=== PATIENT | female | born 1990 | race Caucasian/White ===

== ENCOUNTER 2016-09-03 17:06 | Emergency (ER) | payer SELFPAY ==
[~2016-09-03] VITALS: Ht 160 cm; Wt 93.0 kg
[2016-09-03 17:20] VITALS: BP 141/85
[2016-09-03] MEDS ORDERED: PRED20TA PO (17:59)
--- NOTE | 2016-09-03 18:00 | PHYS DOC ---
Past Medical History Past Medical History: No Pertinent History Additional Past Medical Histor: herpes Past Surgical History: Alcohol Use: Occasionally Drug Use: None Adult General Chief Complaint Chief Complaint: ITCHING HPI HPI Patient is a 26 year old female presents emergency department stating that she was exposed to poison jemima last . She states that she has poison jemima on her right ear chest abdomen perineal area shoulders. She's been using Benadryl and calamine lotion with minimal relief. Patient denies any shortness of air difficulty breathing. 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 She is afraid that this is probably what is caused her to have the areas spread so badly. Review of Systems Review of Systems Constitutional: Denies fever or chills [] Eyes: Denies change in visual acuity, redness, or eye pain [] HENT: Denies nasal congestion or sore throat [] Respiratory: Denies cough or shortness of breath [] Cardiovascular: No additional information not addressed in HPI [] GI: Denies abdominal pain, nausea, vomiting, bloody stools or diarrhea [] : Denies dysuria or hematuria [] Musculoskeletal: Denies back pain or joint pain [] Integument: rash denies skin lesions [] Neurologic: Denies headache, focal weakness or sensory changes [] Endocrine: Denies polyuria or polydipsia [] Allergies Allergies Allergies Coded Allergies Type Severity Reaction Last Updated Verified No Known Drug Allergies 05/30/14 No Physical Exam Physical Exam Constitutional: Well developed, well nourished, no acute distress, non-toxic appearance. [] HENT: Normocephalic, atraumatic, bilateral external ears normal, oropharynx moist, no oral exudates, nose normal. [] Eyes: PERRLA, EOMI, conjunctiva normal, no discharge. [] Neck: Normal range of motion, no tenderness, supple, no stridor. [] Cardiovascular:Heart rate regular rhythm, no murmur [] Lungs & Thorax: Bilateral breath sounds clear to auscultation [] Skin: Warm, dry, no erythema, patient with a rash noted on the right ear lobe and cartilage of the ear. Patient was also noted to have a rash that appears to be fine red raised areas with slight percussion was noted in between bilateral breast area abdomen and perineal area. She is also noted to have the areas on her shoulders. No drainage or discharge noted from the sites this time. Back: No tenderness Extremities: No tenderness, no cyanosis, no clubbing, ROM intact, no edema. [] Neurologic: Alert and oriented X 3, normal motor function, normal sensory function, no focal deficits noted. [] Psychologic: Affect normal, judgement normal, mood normal. [] Current Patient Data Vital Signs Vital Signs Date Time Temp Pulse Resp B/P (MAP) Pulse Ox O2 Delivery O2 Flow Rate FiO2 09/03/16 17:20 98.1 85 18 97 Room Air 98.1 EKG EKG [] Radiology/Procedures Radiology/Procedures [] Course & Med Decision Making Course & Med Decision Making Pertinent Labs and Imaging studies reviewed. (See chart for details) Patient will be provided with a slight Medrol injection here in the emergency department. She was recommended to continue use the Benadryl 25 mg every 6 hours. She was instructed this medication will cause drowsiness do not take any be alert and oriented. Also recommended continue with calamine lotion. She'll be provided with a prescription for prednisone. Recommended keeping the areas clean dry and cool. Patient agrees with discharge instructions, treatment regimens and follow-up recommendations. Signs symptoms to return back to emergency department as been provided. [] Dragon Disclaimer Dragon Disclaimer This electronic medical record was generated, in whole or in part, using a voice recognition dictation system. Departure Departure Impression: Primary Impression: Contact dermatitis Disposition: 01 HOME, SELF-CARE Condition: STABLE Referrals: NO PCP (PCP) Patient Instructions: Contact Dermatitis, [id number] Additional Instructions: Keep the areas clean dry and cool. Benadryl 25 mg every 6 hours as needed for itching and irritation. This medication will cause drowsiness do not take any be alert and oriented. Calamine lotion to the areas 2-3 times a day this will help with the rash. Prednisone as prescribed. Keep the areas as cool as possible. Follow-up with her primary care physician as needed in the next week. Return back to emergency department for signs and symptoms that become worse. Scripts Prednisone (PREDNISONE) 20 Mg Tablet 40 MG PO DAILY for 7 Days, #14 TAB Prov: SALVADOR JUARES APRN 09/03/16 SALVADOR JUARES APRN Sep 03, 2016 17:59
[2016-09-03] MEDS ORDERED: methylPREDNISolone SOD SUCC PF 125 MG/2 ML VIAL. IM ONE (18:15)
== END 2016-09-03 18:35 | disposition home or self-care (01) ==
LOC: ER 17:06
DX: L25.9 Unspecified contact dermatitis, unspecified cause (principal)
CPT/HCPCS: 96372; 99283; J2930

== ENCOUNTER 2017-06-04 09:21 | Emergency (ER) | payer SELFPAY ==
[2017-06-04] MEDS: LIDO:MAALOX 1:1 20 ML SINGLE DOSE. PO (10:01)
[2017-06-04] MEDS: ONDANSETRON ODT 4 MG TAB.RAPDIS. PO (10:01)
[2017-06-04 10:11] LABS: AGAP ISTAT 16 mmol/L (6-14); BUN ISTAT 15 mg/dL (8-26); CHLORIDE ISTAT 104 mmol/L (98-110); CREATININE ISTAT 0.7 mg/dL (0.5-1.4); GLUCOSE ISTAT 101 mg/dL (70-99); HEMATOCRIT ISTAT 41 % (36-40); HEMOGLOBIN ISTAT 13.9 g/dL (12-15); ION CA ISTAT 1.16 mmol/L (1.13-1.32); POTASSIUM ISTAT 3.9 mmol/L (3.5-5.0); SODIUM ISTAT 139 mmol/L (135-145); TOT CO2 ISTAT 24 mmol/L (23-32)
[2017-06-04] MEDS: KETOROLAC 30 MG/ML INJ. IV (10:50)
[2017-06-04 11:04] LABS: D-DIMER 0.27 ug/mlFEU (0.00-0.50)
[2017-06-04] MEDS: FAMOTIDINE 20 MG TABLET. PO (11:29)
== END 2017-06-04 12:17 | disposition home or self-care (01) ==
LOC: ER 09:21
DX: R07.89 Other chest pain (principal)
CPT/HCPCS: 36415; 71046; 80047; 84484; 85379; 93005; 96374; 96375; 99285-25; J1885; J2060; Q0162

== ENCOUNTER 2017-08-18 09:45 | Emergency (ER) | payer SELFPAY ==
[2017-08-18 10:46] LABS: ADD MAN DIFF? NO
[2017-08-18 10:51] LABS: URINE HCG POC HCG NEGATIVE (Negative)
[2017-08-18] MEDS: IV NORMAL SALINE 1000ML BAG 1,000 ML IV (11:00)
[2017-08-18 11:02] LABS: BILIRUBIN,URINE NEGATIVE (NEG); CLARITY,URINE CLEAR; COLOR,URINE YELLOW; GLUCOSE,URINE NEGATIVE (NEG); NITRITE,URINE NEGATIVE (NEG); PH,URINE 5.5; PROTEIN,URINE NEGATIVE (NEG-TRACE); UROBILINOGEN,URINE 0.2 mg/dL (0.2 mg/dL)
[2017-08-18 11:04] LABS: ANION GAP 9 (6-14); BASO # 0.1 x10^3/uL (0.0-0.2); BASO % 1 % (0-3); BLOOD UREA NITROGEN 13 mg/dL (7-20); BUN/CREATININE RATIO 22 (6-20); CALCIUM 8.9 mg/dL (8.5-10.1); CARBON DIOXIDE 25 mmol/L (21-32); CHLORIDE 103 mmol/L (98-107); CREATININE 0.6 mg/dL (0.6-1.0); EOS # 0.1 x10^3/uL (0.0-0.7); EOS % 2 % (0-3); GFR 119.9; GLUCOSE 96 mg/dL (70-99); HEMATOCRIT 41.1 % (36.0-47.0); HEMOGLOBIN 14.2 g/dL (12.0-15.5); LYMPH # 2.5 x10^3/uL (1.0-4.8); LYMPH % 34 % (24-48); MEAN CORPUSCULAR HEMOGLOBIN 30 pg (25-35); MEAN CORPUSCULAR HGB CONC 34 g/dL (31-37); MEAN CORPUSCULAR VOLUME 87 fL (79-100); MONO # 0.5 x10^3/uL (0.0-1.1); MONO % 6 % (0-9); NEUT # 4.3 x10^3uL (1.8-7.7); NEUT % 57 % (31-73); PLATELET COUNT 319 x10^3/uL (140-400); POTASSIUM 4.2 mmol/L (3.5-5.1); RED BLOOD COUNT 4.72 x10^6/uL (3.50-5.40); RED CELL DISTRIBUTION WIDTH 12.2 % (11.5-14.5); SODIUM 137 mmol/L (136-145); WHITE BLOOD COUNT 7.5 x10^3/uL (4.0-11.0)
[2017-08-18 11:09] LABS: ALBUMIN 3.9 g/dL (3.4-5.0); ALBUMIN/GLOBULIN RATIO 1.1 (1.0-1.7); ALK PHOS 82 U/L (46-116); ALT (SGPT) 24 U/L (14-59); AMYLASE 42 U/L (25-115); AST (SGOT) 13 U/L (15-37); LIPASE 103 U/L (73-393); TOTAL BILIRUBIN 0.7 mg/dL (0.2-1.0); TOTAL PROTEIN 7.4 g/dL (6.4-8.2)
[2017-08-18 11:18] LABS: BACTERIA,URINE 0 /HPF (0-FEW); RBC,URINE 0 /HPF (0-2); SQUAMOUS EPITHELIAL CELL,UR MOD /LPF; WBC,URINE 0 /HPF (0-4)
== END 2017-08-18 13:25 | disposition home or self-care (01) ==
LOC: ER 13:25
DX: R10.11 Right upper quadrant pain (principal); R11.0 Nausea; R53.1 Weakness
CPT/HCPCS: 36415; 76705; 80053; 81001; 81025; 82150; 83690; 85025; 99285-25; J7030

== ENCOUNTER 2018-12-02 11:34 | Emergency (ER) | payer SELFPAY ==
[~2018-12-02] VITALS: Ht 160 cm; Wt 89.4 kg
[~2018-12-02 11:34] MED LIST: NITR100C62 PO; PRED20TA PO
[2018-12-02] MEDS ORDERED: KETOROLAC 15 MG/ML VIAL. IV STA (11:51)
[2018-12-02] MEDS ORDERED: IV NORMAL SALINE 1000ML BAG 1,000 ML IV ONE (12:00)
[2018-12-02] MEDS ORDERED: LIDOCAINE 2% 20 ML VIAL. IJ ONE (12:15)
[2018-12-02] MEDS ORDERED: PROCHLORPERAZINE 10 MG/2 ML VIAL. IV ONE (12:15)
[2018-12-02] MEDS ORDERED: diphenhydrAMINE 50 MG/ML VIAL IVP ONE (12:15)
--- NOTE | 2018-12-02 12:33 | PHYS DOC ---
Past Medical History Past Medical History: Kidney Stone Additional Past Medical Histor: herpes Past Surgical History: Alcohol Use: None Drug Use: None Adult General Chief Complaint Chief Complaint: HEADACHE HPI HPI Patient is a 28 year old female presents to the ER with a headache that started around 5:00 AM. The patient states she's been having bilateral eye pain/pressure, and light sensitivity, accompanied by nausea, and vomiting. The patient rates her pain as 8 out of 10 in severity. The patient has not taking medicine home she cannot keep it down. The patient states she does have a history of migraines. Review of Systems Review of Systems Constitutional: Denies fever or chills [] Eyes: Reports eye pressure. Denies change in visual acuity, redness HENT: Denies nasal congestion or sore throat [] Respiratory: Denies cough or shortness of breath [] Cardiovascular: No additional information not addressed in HPI [] GI: Reports nausea and vomiting. Denies abdominal pain,bloody stools or diarrhea [] : Denies dysuria or hematuria [] Musculoskeletal: Denies back pain or joint pain [] Integument: Denies rash or skin lesions [] Neurologic: Reports headache Denies focal weakness or sensory changes [] Endocrine: Denies polyuria or polydipsia [] Complete systems were reviewed and found to be within normal limits, except as documented in this note. Current Medications Current Medications Current Medications Medications (Trade) Dose Ordered Sig/Khoa Start Time Stop Time Status Last Admin Dose Admin Diphenhydramine HCl (Benadryl) 25 mg 1X ONCE 12/02/18 12:15 12/02/18 12:16 DC 12/02/18 12:06 25 MG Ketorolac Tromethamine (Toradol 15mg Vial) 10 mg 1X STAT 12/02/18 11:51 12/02/18 11:59 DC 12/02/18 12:06 10 MG Lidocaine HCl 20 ml 1X ONCE 12/02/18 12:15 12/02/18 12:16 DC 12/02/18 12:07 20 ML Lorazepam (Ativan Inj) 0.5 mg 1X STAT 12/02/18 12:19 12/02/18 12:21 DC Prochlorperazine Edisylate (Compazine) 10 mg 1X ONCE 12/02/18 12:15 12/02/18 12:16 DC 12/02/18 12:05 10 MG Sodium Chloride 1,000 ml @ 1,000 mls/hr 1X ONCE 12/02/18 12:00 12/02/18 12:59 12/02/18 12:05 1,000 MLS/HR Allergies Allergies Allergies Coded Allergies Type Severity Reaction Last Updated Verified No Known Drug Allergies 05/30/14 No Physical Exam Physical Exam Constitutional: Well developed, well nourished, no acute distress, non-toxic appearance. [] HENT: Normocephalic, atraumatic, bilateral external ears normal, oropharynx moist, no oral exudates, nose normal. [] Eyes: PERRLA, EOMI, conjunctiva normal, no discharge. [] Neck: Normal range of motion, no tenderness, supple, no stridor. [] Cardiovascular:Heart rate regular rhythm, no murmur [] Lungs & Thorax: Bilateral breath sounds clear to auscultation [] Abdomen: Bowel sounds normal, soft, no tenderness, no masses, no pulsatile masses. [] Skin: Warm, dry, no erythema, no rash. [] Back: No tenderness, no CVA tenderness. [] Extremities: No tenderness, no cyanosis, no clubbing, ROM intact, no edema. [] Neurologic: Alert and oriented X 3, normal motor function, normal sensory function, no focal deficits noted. [] Psychologic: Affect normal, judgement normal, mood normal. [] Current Patient Data Vital Signs Vital Signs Date Time Temp Pulse Resp B/P (MAP) Pulse Ox O2 Delivery O2 Flow Rate FiO2 12/02/18 11:48 98.4 84 16 151/102 (118) 97 Room Air 98.4 Lab Values Laboratory Tests Test 12/02/18 12:28 POC Urine HCG, Qualitative Hcg negative (Negative) EKG EKG [] Radiology/Procedures Radiology/Procedures [] Course & Med Decision Making Course & Med Decision Making Pertinent Labs and Imaging studies reviewed. (See chart for details) NS Fluids, Compazine, Benadryl, and Toradol to help resolution of headache. Patient states at 12:58 her headache has resolved to a 0/10 and she is ready to go home. Will d/c home. Dragon Disclaimer Dragon Disclaimer This electronic medical record was generated, in whole or in part, using a voice recognition dictation system. Departure Departure Impression: Primary Impression: Migraine Disposition: 01 HOME, SELF-CARE Condition: STABLE Referrals: NO PCP (PCP) Patient Instructions: Migraine Headache Additional Instructions: Thank you for visiting [facility]. We appreciate you trusting us with your care. If any additional problems come up don't hesitate to return to visit us. Please follow up with your primary care provider so they can plan additional care if needed and know about the problem that you had. If symptoms worsen come back to the Emergency Department. Any concerning symptoms that start such as chest pain, shortness of air, weakness or numbness on one side of the body, running high fevers or any other concerning symptoms return to the ER. Problem Qualifiers Primary Impression: Migraine Migraine type: with aura Status migrainosus presence: without status migrainosus Intractability: not intractable Qualified Codes: G43.109 - Migraine with aura, not intractable, without status migrainosus JACINDA TY APRN Dec 02, 2018 12:33
[2018-12-02 12:40] VITALS: BP 126/73
== END 2018-12-02 12:58 | disposition home or self-care (01) ==
LOC: ER 11:34
DX: G43.109 Migraine with aura, not intractable, without status migrainosus (principal); R11.2 Nausea with vomiting, unspecified
CPT/HCPCS: 81025; 96361; 96372; 96374; 96375; 99285; J0780; J1200; J1885; J2001; J7030

== ENCOUNTER 2019-07-20 09:29 | Emergency (ER) | payer SELFPAY ==
[~2019-07-20] VITALS: Ht 160 cm; Wt 96.3 kg
[2019-07-20 09:51] VITALS: BP 145/94
[2019-07-20 10:16] LABS: BILIRUBIN,URINE NEGATIVE (NEG); CLARITY,URINE CLEAR; COLOR,URINE YELLOW; NITRITE,URINE NEGATIVE (NEG); PROTEIN,URINE NEGATIVE (NEG-TRACE)
[2019-07-20 10:31] LABS: BACTERIA,URINE 0 /HPF (0-FEW)
[2019-07-20 10:37] LABS: SQUAMOUS EPITHELIAL CELL,UR OCC /LPF
[2019-07-20] MEDS ORDERED: CIPR500T94 PO (11:55)
[2019-07-20] MEDS ORDERED: PHEN-318 PO (11:55)
--- NOTE | 2019-07-20 11:55 | PHYS DOC ---
Past Medical History Past Medical History: Kidney Stone Additional Past Medical Histor: herpes Past Surgical History: Smoking Status: Current Some Day Smoker Alcohol Use: Occasionally Drug Use: None General Adult EDM: Chief Complaint: URINARY FREQUENCY HPI: HPI: Patient is a 29 year old female who presented to the ER for evaluation of pain with urination and frequency for a few day, no abdominal pain, no nausea or vomiting, no fever. Review of Systems: Review of Systems: Constitutional: Denies fever or chills. [] Eyes: Denies change in visual acuity. [] HENT: Denies nasal congestion or sore throat. [] Respiratory: Denies cough or shortness of breath. [] Cardiovascular: Denies chest pain or edema. [] GI: Denies abdominal pain, nausea, vomiting, bloody stools or diarrhea. [] : Positive for dysuria. [] Musculoskeletal: Denies back pain or joint pain. [] Integument: Denies rash. [] Neurologic: Denies headache, focal weakness or sensory changes. [] Endocrine: Denies polyuria or polydipsia. [] Lymphatic: Denies swollen glands. [] Psychiatric: Denies depression or anxiety. [] Heart Score: Risk Factors: Risk Factors: DM, Current or recent (<one month) smoker, HTN, HLP, family history of CAD, obesity. Risk Scores: Score 0 - 3: 2.5% MACE over next 6 weeks - Discharge Home Score 4 - 6: 20.3% MACE over next 6 weeks - Admit for Clinical Observation Score 7 - 10: 72.7% MACE over next 6 weeks - Early Invasive Strategies Allergies: Allergies: Allergies Coded Allergies Type Severity Reaction Last Updated Verified Penicillins Allergy Mild 07/20/19 Yes Physical Exam: PE: Constitutional: Well developed, well nourished, no acute distress, non-toxic appearance. [] HENT: Normocephalic, atraumatic, bilateral external ears normal, oropharynx moist, nose normal. [] Eyes: PERRLA, EOMI, conjunctiva normal, no discharge. [] Neck: Normal range of motion, no tenderness, supple, no stridor. [] Cardiovascular:Heart rate regular rhythm, no murmur [] Lungs & Thorax: Bilateral breath sounds clear to auscultation [] Abdomen: Bowel sounds normal, soft, no tenderness Skin: Warm, dry, no erythema, no rash. [] Back: No tenderness, no CVA tenderness. [] Extremities: No tenderness, no cyanosis, no clubbing, ROM intact, no edema. [] Neurologic: Alert and oriented X 3, Psychologic: Affect normal, judgement normal, mood normal. [] Current Patient Data: Labs: Laboratory Tests Test 07/20/19 09:47 07/20/19 09:54 Urine Collection Type Unknown Urine Color Yellow Urine Clarity Clear Urine pH 8.0 (<5.0-8.0) Urine Specific [place] 1.015 (1.000-1.030) Urine Protein Negative mg/dL (NEG-TRACE) Urine Glucose (UA) Negative mg/dL (NEG) Urine Ketones (Stick) Negative mg/dL (NEG) Urine Blood Trace (NEG) Urine Nitrite Negative (NEG) Urine Bilirubin Negative (NEG) Urine Urobilinogen Dipstick 1.0 mg/dL (0.2 mg/dL) Urine Leukocyte Esterase Small (NEG) Urine RBC 11-20 /HPF (0-2) Urine WBC 5-10 /HPF (0-4) Urine Squamous Epithelial Cells Occ /LPF Urine Bacteria 0 /HPF (0-FEW) Urine Hyaline Casts /HPF Urine Mucus /LPF POC Urine HCG, Qualitative Hcg negative (Negative) Vital Signs: Vital Signs Date Time Temp Pulse Resp B/P (MAP) Pulse Ox O2 Delivery O2 Flow Rate FiO2 07/20/19 09:51 97.9 90 18 145/94 (111) 98 Room Air 97.9 EKG: EKG: [] Radiology/Procedures: Radiology/Procedures: [] Course & Med Decision Making: Course & Med Decision Making Pertinent Labs and Imaging studies reviewed. (See chart for details) [] Dragon Disclaimer: [employer] Disclaimer: This electronic medical record was generated, in whole or in part, using a voice recognition dictation system. Departure Departure Impression: Primary Impression: UTI (urinary tract infection) Disposition: 01 HOME, SELF-CARE Condition: STABLE Referrals: NO PCP (PCP) PLEASE FOLLOW UP WITH YOUR DOCTOR IN 2 DAYS Patient Instructions: Urinary Tract Infection Scripts Phenazopyridine Hcl (PYRIDIUM) 200 Mg Tablet 1 TAB PO TID for urinary discomfort for 3 Days, #9 TAB 0 Refills Prov: REEYS STEELE DO 07/20/19 Ciprofloxacin Hcl (CIPRO) 500 Mg Tablet 1 TAB PO BID for 7 Days, #14 TAB 0 Refills Prov: REYES STEELE DO 07/20/19 Justicifation of Admission Dx: Justifications for Admission: Justification of Admission Dx: N/A REYES STEELE DO Jul 20, 2019 11:55
== END 2019-07-20 12:02 | disposition home or self-care (01) ==
LOC: ER 09:29
DX: N39.0 Urinary tract infection, site not specified (principal); F17.200 Nicotine dependence, unspecified, uncomplicated; Z87.442 Personal history of urinary calculi; Z88.0 Allergy status to penicillin
CPT/HCPCS: 81001; 81025; 87086; 99283

== ENCOUNTER 2020-03-29 12:24 | Emergency (ER) | payer OTHER ==
[~2020-03-29] VITALS: Ht 167.6 cm; Wt 86.0 kg
[~2020-03-29 12:24] MED LIST changes: +CIPR500T94 PO; +PHEN-318 PO
[2020-03-29 12:44] LABS: BILIRUBIN,URINE NEGATIVE (NEG); CLARITY,URINE CLOUDY; COLOR,URINE YELLOW; NITRITE,URINE NEGATIVE (NEG); PH,URINE 7.5 (<5.0-8.0); PROTEIN,URINE NEGATIVE (NEG-TRACE)
[2020-03-29 13:21] LABS: AMORPHOUS SEDIMENT,UR PRESENT /HPF
[2020-03-29 13:24] LABS: WBC,URINE OCC /HPF (0-4)
[2020-03-29 13:25] LABS: BACTERIA,URINE 0 /HPF (0-FEW); RBC,URINE OCC /HPF (0-2)
[2020-03-29] MEDS ORDERED: ONDANSETRON PF 4 MG/2 ML VIAL. IVP ONE (13:30)
[2020-03-29] MEDS ORDERED: IV NORMAL SALINE 1000ML BAG 1,000 ML IV ONE (13:30)
[2020-03-29] MEDS ORDERED: MORPHINE SULFATE 4 MG/ML VIAL. IV ONE (13:30)
[2020-03-29 14:02] LABS: BASO # 0.1 x10^3/uL (0.0-0.2); BASO % 1 % (0-3); EOS # 0.3 x10^3/uL (0.0-0.7); EOS % 4 % (0-3); HEMATOCRIT 40.9 % (36.0-47.0); HEMOGLOBIN 13.7 g/dL (12.0-15.5); LYMPH # 2.9 x10^3/uL (1.0-4.8); LYMPH % 38 % (24-48); MEAN CORPUSCULAR HEMOGLOBIN 30 pg (25-35); MEAN CORPUSCULAR HGB CONC 34 g/dL (31-37); MEAN CORPUSCULAR VOLUME 88 fL (79-100); MONO # 0.5 x10^3/uL (0.0-1.1); MONO % 6 % (0-9); NEUT # 3.8 x10^3/uL (1.8-7.7); NEUT % 51 % (31-73); PLATELET COUNT 310 x10^3/uL (140-400); RED BLOOD COUNT 4.64 x10^6/uL (3.50-5.40); RED CELL DISTRIBUTION WIDTH 12.2 % (11.5-14.5); WHITE BLOOD COUNT 7.5 x10^3/uL (4.0-11.0)
[2020-03-29 14:46] LABS: CALCIUM 9.1 mg/dL (8.5-10.1); CREATININE 0.6 mg/dL (0.6-1.0); GFR 118.2; POTASSIUM 3.9 mmol/L (3.5-5.1)
--- NOTE | 2020-03-29 14:47 | RAD ---
PQRS Compliance Statement: One or more of the following individualized dose reduction techniques were utilized for this examinat ion: 1. Automated exposure control 2. Adjustment of the mA and/or kV according to patient size 3. Use of iterative reconstruction technique CT ABDOMEN+PELVIS WO Clinical Indication: Reason: abd pain / Spl, right upper quadrant pain x5 days. Comparison: CT abdomen and pelvis without contrast December 15, 2016. Technique: Helical CT imaging of the abdomen and pelvis is performed without IV or oral contrast. Findings: Evaluation of solid organs and bowel is limited without oral and IV contrast, decreasing sensitivity for detection of pathology. The lung bases are clear. Cardiac size normal. The liver, gallbladder, spleen, pancreas, adrenal glands, and abdominal aorta are normal. There is a 2 mm nonobstructing right renal calculus. There is no right hydronephrosis. There is a 4 m m nonobstructing calculus in the lower pole the left kidney. There is no left hydronephrosis. There i s chronic left hydroureter, no ureteral calculus is identified. The stomach is unremarkable. No dilated small bowel. The base of the appendix caliber is mildly dilat ed measuring 8 mm. There is hyperdense material in the lumen. The tip of the appendix is normal in ca liber. There is no surrounding inflammation. There is no colon wall thickening. No abdominal adenopat hy or free fluid. Urinary bladder is normal. IUD in the uterus. Ovaries unremarkable. No pelvic free fluid. 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 IMPRESSION: 1. The base of the appendix is mildly dilated measuring 8 mm. There is no surrounding inflammation. The more distal appendix is normal caliber. In the absence of localized pain or leukocytosis finding may be normal for this patient. 2. Bilateral nonobstructing renal calculus. 3. Chronic left hydroureter. Electronically signed by: Koffi Chu MD (03/29/2020 2:44 PM) [facility]
[2020-03-29 14:51] LABS: ALBUMIN 3.8 g/dL (3.4-5.0); TOTAL BILIRUBIN 0.4 mg/dL (0.2-1.0); TOTAL PROTEIN 7.6 g/dL (6.4-8.2)
--- NOTE | 2020-03-29 16:07 | PHYS DOC ---
Past Medical History Past Medical History: Kidney Stone, Migraines Additional Past Medical Histor: herpes Past Surgical History: Smoking Status: Former Smoker Alcohol Use: Occasionally Drug Use: None General Adult EDM: Chief Complaint: ABDOMINAL PAIN HPI: HPI: Patient is a 29 year old female patient with history of kidney stones presenting to the ED today complaining of 7 out of 10 sharp constant epigastric abdominal pain, right upper quadrant pain, symptoms began 5 days ago. Patient is also complaining of nausea and vomiting. Denies anything specifically e xacerbating or relieving her symptoms. Denies any chance she is . She states she was seen at urgent care at the onset of her symptoms, she states she was diagnosed with gallbladder problems and sent to follow-up with a general surgeon. She states she followed up with the general surgeon and was seen just prior to coming to the ED. She states the general surgeon told her she needed to have 3 xrays including a pipida scan. She states the general surgeon also told her he is not going to give her anything for pain because he felt she was seeking for narcotics. She states her pain is so severe that she wonders why nobody is giving her anything for pain and why no one can find the exact cause for her pain. She states urgent care only gave her medicine to help with stomach cramps and acid reflux. She states this medicines are not touching her pain. She states she is in constant pain and would like somebody to give her something for her pain as well as find the exact cause for her pain. She states she did not go for the test because she did not think she needs those test. Patient continues to mention pain and needing pain medicine. She states she cannot work with this pain. She states she told the general surgeon she cannot work with the pain and the general surgeon told her to go find another job. Review of Systems: Review of Systems: Constitutional: Denies fever or chills. [] Eyes: Denies change in visual acuity. [] HENT: Denies nasal congestion or sore throat. [] Respiratory: Denies cough or shortness of breath. [] Cardiovascular: Denies chest pain or edema. [] GI: Reports epigastric abdominal pain, right upper quadrant pain, denies nausea, vomiting, bloody stools or diarrhea. [] : Denies dysuria. [] Musculoskeletal: Denies back pain or joint pain. [] Integument: Denies rash. [] Neurologic: Denies headache, focal weakness or sensory changes. [] Psychiatric: Denies depression or anxiety. [] Heart Score: Risk Factors: Risk Factors: DM, Current or recent (<one month) smoker, HTN, HLP, family history of CAD, obesity. Risk Scores: Score 0 - 3: 2.5% MACE over next 6 weeks - Discharge Home Score 4 - 6: 20.3% MACE over next 6 weeks - Admit for Clinical Observation Score 7 - 10: 72.7% MACE over next 6 weeks - Early Invasive Strategies Current Medications: Current Medications Medications (Trade) Dose Ordered Sig/Khoa Start Time Stop Time Status Last Admin Dose Admin Morphine Sulfate (Morphine Sulfate) 4 mg 1X ONCE 03/29/20 13:30 03/29/20 13:31 DC 03/29/20 13:44 4 MG Ondansetron HCl (Zofran) 4 mg 1X ONCE 03/29/20 13:30 03/29/20 13:31 DC 03/29/20 13:45 4 MG Sodium Chloride 1,000 ml @ 1,000 mls/hr 1X ONCE 03/29/20 13:30 03/29/20 14:29 DC 03/29/20 13:45 1,000 MLS/HR Allergies: Allergies: Allergies Coded Allergies Type Severity Reaction Last Updated Verified Iodinated Contrast Media Allergy Intermediate Nausea and Vomiting 03/29/20 Yes Penicillins Allergy Intermediate 03/29/20 Yes Physical Exam: PE: Constitutional: Well developed, well nourished, no acute distress, non-toxic appearance. [] HENT: Normocephalic, atraumatic, bilateral external ears normal, oropharynx moist, no oral exudates, nose normal. [] Eyes: PERRLA, EOMI, conjunctiva normal, no discharge. [] Neck: Normal range of motion, no tenderness, supple, no stridor. [] Cardiovascular:Heart rate regular rhythm, no murmur [] Lungs & Thorax: Bilateral breath sounds clear to auscultation [] Abdomen: Bowel sounds normal, soft, diffuse tenderness in the right upper quadrant with negative Palafox sign, no right lower quadrant pain or tenderness, no left lower quadrant tenderness, negative psoas sign, negative obturator sign, no masses, no pulsatile masses. [] Skin: Warm, dry, no erythema, no rash. [] Back: No tenderness, no CVA tenderness. [] Extremities: No tenderness, no cyanosis, no clubbing, ROM intact, no edema. [] Neurologic: Alert and oriented X 3, normal motor function, normal sensory function, no focal deficits noted. [] Psychologic: Affect normal, judgement normal, mood normal. [] Current Patient Data: Labs: Laboratory Tests Test 03/29/20 12:25 03/29/20 12:39 03/29/20 13:40 Urine Collection Type Void Urine Color Yellow Urine Clarity Cloudy Urine pH 7.5 (<5.0-8.0) Urine Specific Clubb 1.020 (1.000-1.030) Urine Protein Negative mg/dL (NEG-TRACE) Urine Glucose (UA) Negative mg/dL (NEG) Urine Ketones (Stick) Negative mg/dL (NEG) Urine Blood Moderate (NEG) Urine Nitrite Negative (NEG) Urine Bilirubin Negative (NEG) Urine Urobilinogen Dipstick 1.0 mg/dL (0.2 mg/dL) Urine Leukocyte Esterase Negative (NEG) Urine RBC Occ /HPF (0-2) Urine WBC Occ /HPF (0-4) Urine Squamous Epithelial Cells Few /LPF Urine Amorphous Sediment Present /HPF Urine Bacteria 0 /HPF (0-FEW) Urine Mucus Slight /LPF POC Urine HCG, Qualitative Hcg negative (Negative) White Blood Count 7.5 x10^3/uL (4.0-11.0) Red Blood Count 4.64 x10^6/uL (3.50-5.40) Hemoglobin 13.7 g/dL (12.0-15.5) Hematocrit 40.9 % (36.0-47.0) Mean Corpuscular Volume 88 fL (79-100) Mean Corpuscular Hemoglobin 30 pg (25-35) Mean Corpuscular Hemoglobin Concent 34 g/dL (31-37) Red Cell Distribution Width 12.2 % (11.5-14.5) Platelet Count 310 x10^3/uL (140-400) Neutrophils (%) (Auto) 51 % (31-73) Lymphocytes (%) (Auto) 38 % (24-48) Monocytes (%) (Auto) 6 % (0-9) Eosinophils (%) (Auto) 4 % (0-3) H Basophils (%) (Auto) 1 % (0-3) Neutrophils # (Auto) 3.8 x10^3/uL (1.8-7.7) Lymphocytes # (Auto) 2.9 x10^3/uL (1.0-4.8) Monocytes # (Auto) 0.5 x10^3/uL (0.0-1.1) Eosinophils # (Auto) 0.3 x10^3/uL (0.0-0.7) Basophils # (Auto) 0.1 x10^3/uL (0.0-0.2) Sodium Level 140 mmol/L (136-145) Potassium Level 3.9 mmol/L (3.5-5.1) Chloride Level 104 mmol/L (98-107) Carbon Dioxide Level 27 mmol/L (21-32) Anion Gap 9 (6-14) Blood Urea Nitrogen 15 mg/dL (7-20) Creatinine 0.6 mg/dL (0.6-1.0) Estimated GFR (Cockcroft-Gault) 118.2 BUN/Creatinine Ratio 25 (6-20) H Glucose Level 89 mg/dL (70-99) Calcium Level 9.1 mg/dL (8.5-10.1) Total Bilirubin 0.4 mg/dL (0.2-1.0) Aspartate Amino Transferase (AST) 11 U/L (15-37) L Alanine Aminotransferase (ALT) 25 U/L (14-59) Alkaline Phosphatase 62 U/L (46-116) Total Protein 7.6 g/dL (6.4-8.2) Albumin 3.8 g/dL (3.4-5.0) Albumin/Globulin Ratio 1.0 (1.0-1.7) Lipase 87 U/L (73-393) Ethyl Alcohol Level < 10 mg/dL (0-10) Laboratory Tests 03/29/20 13:40 Laboratory Tests 03/29/20 13:40 Vital Signs: Vital Signs Date Time Temp Pulse Resp B/P (MAP) Pulse Ox O2 Delivery O2 Flow Rate FiO2 03/29/20 13:44 18 97 Room Air 03/29/20 13:04 97.9 76 137/85 (102) 97.9 EKG: EKG: [] Radiology/Procedures: Radiology/Procedures: []PROCEDURE: CT ABDOMEN PELVIS WO CONTRAST PQRS Compliance Statement: One or more of the following individualized dose reduction techniques were utilized for this examination: 1. Automated exposure control 2. Adjustment of the mA and/or kV according to patient size 3. Use of iterative reconstruction technique CT ABDOMEN+PELVIS WO Clinical Indication: Reason: abd pain / Spl, right upper quadrant pain x5 days. Comparison: CT abdomen and pelvis without contrast December 15, 2016. Technique: Helical CT imaging of the abdomen and pelvis is performed without IV or oral contrast. Findings: Evaluation of solid organs and bowel is limited without oral and IV contrast, decreasing sensitivity for detection of pathology. The lung bases are clear. Cardiac size normal. The liver, gallbladder, spleen, pancreas, adrenal glands, and abdominal aorta are normal. There is a 2 mm nonobstructing right renal calculus. There is no right hydronephrosis. There is a 4 mm nonobstructing calculus in the lower pole the left kidney. There is no left hydronephrosis. There is chronic left hydroureter, no ureteral calculus is identified. The stomach is unremarkable. No dilated small bowel. The base of the appendix caliber is mildly dilated measuring 8 mm. There is hyperdense material in the lumen. The tip of the appendix is normal in caliber. There is no surrounding inflammation. There is no colon wall thickening. No abdominal adenopathy or free fluid. Urinary bladder is normal. IUD in the uterus. Ovaries unremarkable. No pelvic free fluid. 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 IMPRESSION: 1. The base of the appendix is mildly dilated measuring 8 mm. There is no surr ounding inflammation. The more distal appendix is normal caliber. In the absence of localized pain or leukocytosis finding may be normal for this patient. 2. Bilateral nonobstructing renal calculus. 3. Chronic left hydroureter. Electronically signed by: Koffi Chu MD (03/29/2020 2:44 PM) [facility] DICTATED and SIGNED BY: KOFFI CHU MD DATE: 03/29/20 [id number] 0 Course & Med Decision Making: Course & Med Decision Making Pertinent Labs and Imaging studies reviewed. (See chart for details) This is a 29-year-old female patient presenting to the ED today complaining of right upper quadrant pain and epigastric pain, symptoms for 5 days, patient reports being seen at urgent care and was told she has gallbladder problems, she states she was referred to a general surgeon who she saw just before coming to the ED. She states when she got to the general surgeon's office she was asked to go do 3 more x-rays, one of them was a PIPIDA scan. She states the general surgeon refused to give her pain medicine and felt she was drug-seeking for narcotics. She is requesting something for her pain and demanding which she get the cause for her pain and give her medicine to completely clear the pain, she states she can not work or live with this pain. Patient spend a lot of time talking about her pain and wanting something for this pain to be cleared. CBC CMP with no acute findings. UA negative for infection. CT of the abdomen and pelvic was noted for a mildly dilated appendix roughly 8 mm with no surrounding inflammation. The distal caliber of the appendix was normal. Patient has no right lower quadrant abdominal pain, has no right lower quadrant tenderness, she has been sitting up straight with no difficulties. Her white count is normal. She is afebrile. Radiology mentions if this are negative this is likely her normal appendix size. CT also noted for bilateral nonobstructing renal calculus or loss of chronic left hydroureter, patient has history of chronic kidney stones. Results were communicated to patient, patient spent another incredible amount of time asking why we cannot give an exact cause for her pain. She states she does not want to keep doing all this tests with no telling exactly what is causing her this abdominal pain. She is also asking why we cannot give her pain medicine. Informed patient she was given an antiacid as well as what sounded as medicine to help with abdominal cramping by urgent care. Informed this is adequate considering we do not have any acute cause for her pain we will not give her any narcotics or any thing stronger for her pain. Recommended [id number] remedies. She continues to state why is it nobody wants to give her anything stronger to end of this pain. Did talk to patient at length about narcotics and the problems to having with overdose and drug addiction. Informed patient most of the patients started taking small amount of pain medicine for some pain related complains and eventually ended up being addicted and at some point start abusing the medicine with some dying. Informed patient in good marta we would like her to follow-up with the general surgeon she got from urgent care and if she does not want to see that surgeon she can go follow- up with the general surgeon I provided her. I also provided a pain clinic doctor and GI which she refused. Patient has used an incredible amount of time from me and the nurse discussing pain and pain management. I discharged her to home. Vicetne Disclaimer: Vicente Disclaimer: This electronic medical record was generated, in whole or in part, using a voice recognition dictation system. Departure Departure Impression: Primary Impression: Upper abdominal pain Disposition: 01 DC HOME SELF CARE/HOMELESS Condition: STABLE Referrals: NO PCP (PCP) NUBIA DUMONT MD follow up with the general surgeon you saw today or the one provided ISRAEL HENRY MD follow up in 1 week Patient Instructions: Abdominal Pain (Nonspecific) Additional Instructions: Please follow-up with your general surgeon you saw today with the provided general surgeon. Also consider seeing your primary care doctor. You are welcome to follow-up with the pain clinic provided as well KAREN ROSALES APRN Mar 29, 2020 16:07
[2020-03-29 16:50] VITALS: BP 122/81
[2020-03-29 17:14] LABS: BARBITURATES NEG (NEG); BENZODIAZEPINES NEG (NEG); CANNABINOIDS NEG (NEG); COCAINE NEG (NEG); METHADONE NEG (NEG); OPIATES NEG (NEG); PHENCYCLIDINE NEG (NEG)
[2020-03-29 17:15] LABS: AMPHETAMINE/METHAMPHETAMINE NEG (NEG)
== END 2020-03-29 16:54 | disposition home or self-care (01) ==
LOC: ER 12:24
DX: R10.13 Epigastric pain (principal); R10.11 Right upper quadrant pain; R11.2 Nausea with vomiting, unspecified; G43.909 Migraine, unspecified, not intractable, without status migrainosus; Z87.891 Personal history of nicotine dependence; Z87.442 Personal history of urinary calculi; Z98.890 Other specified postprocedural states; Z88.0 Allergy status to penicillin; Z91.040 Latex allergy status
CPT/HCPCS: 36415; 74176; 80053; 80307; 81001; 81025; 83690; 85025; 96361; 96374; 96375; 99284; G0480; J2270; J2405; J7030

== ENCOUNTER 2021-03-07 08:17 | Emergency (ER) | payer OTHER ==
[~2021-03-07] VITALS: Ht 160 cm; Wt 95.4 kg
[2021-03-07] MEDS ORDERED: ONDANSETRON PF 4 MG/2 ML VIAL. IVP ONE (09:00)
[2021-03-07 09:01] LABS: BILIRUBIN,URINE NEGATIVE (NEG); CLARITY,URINE CLEAR; COLOR,URINE YELLOW; NITRITE,URINE NEGATIVE (NEG); PROTEIN,URINE NEGATIVE (NEG-TRACE); UROBILINOGEN,URINE 0.2 mg/dL (0.2 mg/dL)
[2021-03-07 09:03] LABS: BACTERIA,URINE FEW /HPF (0-FEW); RBC,URINE 0 /HPF (0-2)
[2021-03-07] MEDS ORDERED: KETOROLAC 30 MG/ML VIAL. INJ ONE (09:15)
[2021-03-07 09:18] LABS: BASO # 0.1 x10^3/uL (0.0-0.2); BASO % 1 % (0-3); EOS # 0.2 x10^3/uL (0.0-0.7); EOS % 4 % (0-3); HEMOGLOBIN 14.2 g/dL (12.0-15.5); LYMPH # 2.2 x10^3/uL (1.0-4.8); LYMPH % 37 % (24-48); MEAN CORPUSCULAR HEMOGLOBIN 30 pg (25-35); MEAN CORPUSCULAR HGB CONC 35 g/dL (31-37); MEAN CORPUSCULAR VOLUME 87 fL (79-100); MONO # 0.4 x10^3/uL (0.0-1.1); MONO % 6 % (0-9); NEUT # 3.1 x10^3/uL (1.8-7.7); NEUT % 52 % (31-73); PLATELET COUNT 311 x10^3/uL (140-400); RED BLOOD COUNT 4.72 x10^6/uL (3.50-5.40)
[2021-03-07 09:26] LABS: CALCIUM 8.8 mg/dL (8.5-10.1); CREATININE 0.6 mg/dL (0.6-1.0); GFR 117.4; POTASSIUM 3.9 mmol/L (3.5-5.1)
[2021-03-07 09:33] LABS: ALBUMIN 3.5 g/dL (3.4-5.0); ALBUMIN/GLOBULIN RATIO 0.8 (1.0-1.7); TOTAL BILIRUBIN 0.3 mg/dL (0.2-1.0)
--- NOTE | 2021-03-07 09:38 | RAD ---
EXAMINATION: CT ABDOMEN+PELVIS WO CLINICAL HISTORY: Left flank pain, llq pain, diarrhea, guarding on exam TECHNIQUE: Imaging of the abdomen and pelvis was performed without intravenous contrast using standar d technique, scanning from just above the dome of the diaphragm to the symphysis pubis. Unenhanced i maging is limited for the evaluation of some intra-abdominal and pelvic pathology. CT Dose Reduction Employed: One or more of the following individualized dose reduction techniques wer e utilized for this examination: 1. Automated exposure control 2. Adjustment of the mA and/or kV ac cording to patient size 3. Use of iterative reconstruction technique. COMPARISON: 03/29/2020 FINDINGS: Visualized heart and lungs unremarkable. Liver, gallbladder, pancreas, spleen, and adrenal glands unremarkable. Small nonobstructive bilateral renal calculi. Calculus seen in the right midpole on prior exam is no longer appreciated and there is now a calculus seen in the right lower pole. Chronic left hydroureter , similar to prior study. Minimally filled urinary bladder suboptimally evaluated. Intrauterine contraceptive device in place. Ovaries unremarkable on limited evaluation. No dilated bowel. Appendix within normal limits. No abdominal aortic or iliac artery aneurysm. Tiny fat-containing supraumbilical hernia, similar to prior study. No evidence of acute osseous abnor mality. Essentially unchanged ileal sided subchondral sclerosis along the bilateral SI joints, nonspe cific but can be seen with sacroiliitis. IMPRESSION: No evidence of acute abdominopelvic abnormality or significant interval change. Bilateral nonobstructive nephrolithiasis. Chronic left hydroureter, similar to prior study. Ileal subchondral sclerosis at the bilateral SI joints, nonspecific but can be seen with sacroiliitis . Correlate clinically. Electronically signed by: Atilio Tong DO (03/07/2021 9:35 AM) [facility]
[2021-03-07] MEDS ORDERED: ONDA4TAB12 PO (11:01)
[2021-03-07 11:02] VITALS: BP 130/70
--- NOTE | 2021-03-07 11:03 | PHYS DOC ---
Past Medical History Past Medical History: Kidney Stone, Migraines Additional Past Medical Histor: herpes Past Surgical History: Smoking Status: Never Smoker Alcohol Use: None Drug Use: None General Adult EDM: Chief Complaint: FLANK PAIN HPI: HPI: Patient is a 30 year old female with history of recurrent kidney stones who presents with left flank/lower back pain. Pain has been present for the past several days. The pain initially felt typical of her kidney stone pain, but has changed over the past day or 2. Now the pain radiates down her left leg all the way to the toe. Described as burning and tingling. Denies dysuria, urgency, frequency, or hematuria. The pain is also radiating towards the left lower quadrant of her abdomen. She has had associated diarrhea today. She denies any weakness of her legs, bowel/bladder incontinence, fever/chills, immunosuppression, or IVDU. She has been nauseous but has not been vomiting. Review of Systems: Review of Systems: Constitutional: Denies fever or chills. [] Eyes: Denies change in visual acuity. [] HENT: Denies nasal congestion or sore throat. [] Respiratory: Denies cough or shortness of breath. [] Cardiovascular: Denies chest pain or edema. [] GI: Denies abdominal pain, vomiting, bloody stools. Reports diarrhea and nausea. : Reports left flank pain. Denies dysuria, urgency, frequency, hematuria, incontinence Musculoskeletal: Reports left low back pain radiating to the left leg Integument: Denies rash. [] Neurologic: Denies headache, focal weakness or sensory changes. [] Psychiatric: Denies depression or anxiety. [] Heart Score: C/O Chest Pain: No Current Medications: Current Medications Medications (Trade) Dose Ordered Sig/[facility] Start Time Stop Time Status Last Admin Dose Admin Ketorolac Tromethamine (Toradol 30mg Vial) 15 mg 1X ONCE 03/07/21 09:15 03/07/21 09:16 DC 03/07/21 09:40 15 MG Ondansetron HCl (Zofran) 4 mg 1X ONCE 03/07/21 09:00 03/07/21 09:02 DC 03/07/21 09:40 4 MG Allergies: Allergies: Allergies Coded Allergies Type Severity Reaction Last Updated Verified Penicillins Allergy Intermediate 03/07/21 Yes Iodinated Contrast Media Adverse Reaction Intermediate Nausea and Vomiting 03/07/21 Yes Physical Exam: PE: Constitutional: Well developed, well nourished, no acute distress, non-toxic appearance. [] Neck: Normal range of motion, no tenderness, supple, no stridor. [] Cardiovascular:Heart rate regular rhythm, no murmur [] Lungs & Thorax: Bilateral breath sounds clear to auscultation [] Abdomen: Soft, nondistended, left lower quadrant is focally tender with some mild involuntary guarding. Skin: Warm, dry, no erythema, no rash. [] Back: No tenderness, no CVA tenderness. [] Extremities: No tenderness, no cyanosis, no clubbing, ROM intact, no edema. [] Neurologic: Alert and oriented X 3, normal motor function, normal sensory function, no focal deficits noted. [] Specifically 5/5 strength bilaterally in: Hip flexion and adduction Knee flexion/extension Ankle plantar/dorsiflexion Dorsiflexion of the great toe Psychologic: Affect normal, judgement normal, mood normal. [] Current Patient Data: Labs: Laboratory Tests Test 03/07/21 08:33 03/07/21 08:41 03/07/21 09:05 POC Urine HCG, Qualitative Hcg negative (Negative) Urine Collection Type Unknown Urine Color Yellow Urine Clarity Clear Urine pH 7.0 (<5.0-8.0) Urine Specific [place] 1.025 (1.000-1.030) Urine Protein Negative mg/dL (NEG-TRACE) Urine Glucose (UA) Negative mg/dL (NEG) Urine Ketones (Stick) Negative mg/dL (NEG) Urine Blood Negative (NEG) Urine Nitrite Negative (NEG) Urine Bilirubin Negative (NEG) Urine Urobilinogen Dipstick 0.2 mg/dL (0.2 mg/dL) Urine Leukocyte Esterase Trace (NEG) Urine RBC 0 /HPF (0-2) Urine WBC 1-4 /HPF (0-4) Urine Squamous Epithelial Cells Mod /LPF Urine Bacteria Few /HPF (0-FEW) Urine Mucus Slight /LPF White Blood Count 6.0 x10^3/uL (4.0-11.0) Red Blood Count 4.72 x10^6/uL (3.50-5.40) Hemoglobin 14.2 g/dL (12.0-15.5) Hematocrit 41.0 % (36.0-47.0) Mean Corpuscular Volume 87 fL (79-100) Mean Corpuscular Hemoglobin 30 pg (25-35) Mean Corpuscular Hemoglobin Concent 35 g/dL (31-37) Red Cell Distribution Width 12.0 % (11.5-14.5) Platelet Count 311 x10^3/uL (140-400) Neutrophils (%) (Auto) 52 % (31-73) Lymphocytes (%) (Auto) 37 % (24-48) Monocytes (%) (Auto) 6 % (0-9) Eosinophils (%) (Auto) 4 % (0-3) H Basophils (%) (Auto) 1 % (0-3) Neutrophils # (Auto) 3.1 x10^3/uL (1.8-7.7) Lymphocytes # (Auto) 2.2 x10^3/uL (1.0-4.8) Monocytes # (Auto) 0.4 x10^3/uL (0.0-1.1) Eosinophils # (Auto) 0.2 x10^3/uL (0.0-0.7) Basophils # (Auto) 0.1 x10^3/uL (0.0-0.2) Sodium Level 138 mmol/L (136-145) Potassium Level 3.9 mmol/L (3.5-5.1) Chloride Level 103 mmol/L (98-107) Carbon Dioxide Level 27 mmol/L (21-32) Anion Gap 8 (6-14) Blood Urea Nitrogen 18 mg/dL (7-20) Creatinine 0.6 mg/dL (0.6-1.0) Estimated GFR (Cockcroft-Gault) 117.4 BUN/Creatinine Ratio 30 (6-20) H Glucose Level 100 mg/dL (70-99) H Calcium Level 8.8 mg/dL (8.5-10.1) Total Bilirubin 0.3 mg/dL (0.2-1.0) Aspartate Amino Transferase (AST) 19 U/L (15-37) Alanine Aminotransferase (ALT) 40 U/L (14-59) Alkaline Phosphatase 80 U/L (46-116) Total Protein 8.0 g/dL (6.4-8.2) Albumin 3.5 g/dL (3.4-5.0) Albumin/Globulin Ratio 0.8 (1.0-1.7) L Laboratory Tests 03/07/21 09:05 Laboratory Tests 03/07/21 09:05 Vital Signs: Vital Signs Date Time Temp Pulse Resp B/P (MAP) Pulse Ox O2 Delivery O2 Flow Rate FiO2 03/07/21 08:18 98.1 84 18 137/88 (104) 99 Room Air 98.1 EKG: EKG: [] Radiology/Procedures: Radiology/Procedures: [] Impression: [facility] [address] [place] [address] IMAGING REPORT Signed PATIENT: MARICARMEN RAO ACCOUNT: [id number] : 1990 LOCATION: ER AGE: 30 SEX: F EXAM STATUS: REG ER ORD. PHYSICIAN: THIAGO DONALD MD REASON: L flank pain, llq pain, diarrhea, guarding on exam PROCEDURE: CT ABDOMEN PELVIS WO CONTRAST EXAMINATION: CT ABDOMEN+PELVIS WO CLINICAL HISTORY: Left flank pain, llq pain, diarrhea, guarding on exam TECHNIQUE: Imaging of the abdomen and pelvis was performed without intravenous contrast using standard technique, scanning from just above the dome of the diaphragm to the symphysis pubis. Unenhanced imaging is limited for the evaluation of some intra-abdominal and pelvic pathology. CT Dose Reduction Employed: One or more of the following individualized dose reduction techniques were utilized for this examination: 1. Automated exposure control 2. Adjustment of the mA and/or kV according to patient size 3. Use of iterative reconstruction technique. COMPARISON: 03/29/2020 FINDINGS: Visualized heart and lungs unremarkable. Liver, gallbladder, pancreas, spleen, and adrenal glands unremarkable. Small nonobstructive bilateral renal calculi. Calculus seen in the right midpole on prior exam is no longer appreciated and there is now a calculus seen in the right lower pole. Chronic left hydroureter, similar to prior study. Minimally filled urinary bladder suboptimally evaluated. Intrauterine co ntraceptive device in place. Ovaries unremarkable on limited evaluation. No dilated bowel. Appendix within normal limits. No abdominal aortic or iliac artery aneurysm. Tiny fat-containing supraumbilical hernia, similar to prior study. No evidence of acute osseous abnormality. Essentially unchanged ileal sided subchondral sclerosis along the bilateral SI joints, nonspecific but can be seen with sacroiliitis. IMPRESSION: No evidence of acute abdominopelvic abnormality or significant interval change. Bilateral nonobstructive nephrolithiasis. Chronic left hydroureter, similar to prior study. Ileal subchondral sclerosis at the bilateral SI joints, nonspecific but can be seen with sacroiliitis. Correlate clinically. Electronically signed by: Atilio Sumner DO (03/07/2021 9:35 AM) [facility] DICTATED and SIGNED BY: ATILIO SUMNER DO DATE: 03/07/21 [id number] Course & Med Decision Making: Course & Med Decision Making Pertinent Labs and Imaging studies reviewed. (See chart for details) Patient 30-year-old female with history of kidney stones who presents with left flank/lumbar pain, radicular pain in the leg, and nausea/diarrhea. Is afebrile, hemodynamically stable, well-appearing on arrival. She does have focal left lower quadrant tenderness on abdominal examination. She has intact lower extremity strength and no back pain red flags. DDx includes but is not limited to lumbosacral radiculopathy, kidney stone, pyelonephritis, diverticulitis/colitis. UA was not convincing for UTI, and patient states that this does not feel similar to previous episodes of urinary tract infection. Will defer antibiotic treatment to urine culture. No blood in urine or obstructive stone seen on CT imaging. Less likely kidney stone. No evidence of diverticulitis/colitis on CT. Diarrhea does not have a clear etiology, but no concerning features were found on hx or work up. Feel this is most likely a lumbosacral radiculopathy. As above she has intact motor strength, does not require urgent/emergent neuroimaging. I have advised her on a trial of NSAIDs for conservative management. Return precautions discussed. Vicente Disclaimer: Vicente Disclaimer: This electronic medical record was generated, in whole or in part, using a voice recognition dictation system. Departure Departure Impression: Primary Impression: Lumbar radicular pain Additional Impression: Left flank pain Referrals: NO PCP (PCP) Patient Instructions: Lumbosacral Radiculopathy Additional Instructions: For pain tylenol and ibuprofen are best used on a schedule. Please alternate between the two. -Tylenol 1000 mg every 6 hours (do not exceed 4000 mg in one day) -Ibuprofen 600 mg every 6 hours. Take with food. If you develop weakness in your legs, incontinence of bowel/bladder, inability to walk, high fever/shaking chills, or other new/concerning symptoms please return to the emergency department for reevaluation. Your urine is being sent for culture, if it grows a bacteria, you will be called to discuss starting an antibiotic. Scripts Ondansetron (ONDANSETRON ODT) 4 Mg Tab.rapdis 1 TAB PO PRN Q6-8HRS, #16 TAB Prov: THIAGO DONALD MD 03/07/21 THIAGO DONALD MD Mar 07, 2021 11:03
== END 2021-03-07 11:05 | disposition home or self-care (01) ==
LOC: ER 08:17
DX: M54.16 Radiculopathy, lumbar region (principal); R10.9 Unspecified abdominal pain; Z88.0 Allergy status to penicillin; Z91.041 Radiographic dye allergy status
CPT/HCPCS: 36415; 74176; 80053; 81001; 81025; 85025; 87086; 96374; 96375; 99284; J1885; J2405